=== PATIENT | female | born 1970 | race African-American/Black ===

== ENCOUNTER 2018-12-22 18:11 | Emergency (ER) | payer SELFPAY ==
[~2018-12-22] VITALS: Ht 167.6 cm; Wt 95.0 kg
[2018-12-22] MEDS ORDERED: TETANUS, DIPHTHERIA, PERTUSSIS VAC/PF 0.5ML (>7YR OLD) IM ONE (20:30)
[2018-12-22] MEDS ORDERED: LIDOCAINE HCL/PF 1% 10 MG/ML 5ML VIAL IJ ONE (20:30)
[2018-12-22] MEDS ORDERED: IBUPROFEN 600MG TABLET PO ONE (20:30)
[2018-12-22] MEDS ORDERED: BACITRACIN ZINC OINT UDPKT TOP ONE (20:30)
[2018-12-22] MEDS ORDERED: BACITRACIN 15GM TUBE TOP NR (21:00)
[2018-12-22 22:25] VITALS: BP 132/81
== END 2018-12-22 22:33 | disposition home or self-care (01) ==
LOC: ER 19:41
DX: S61.012A Laceration without foreign body of left thumb without damage to nail, initial encounter (principal); Z98.51 Tubal ligation status; W25.XXXA Contact with sharp glass, initial encounter; Y93.89 Activity, other specified; Y92.89 Other specified places as the place of occurrence of the external cause
CPT/HCPCS: 73130; 90471; 90715; 99283; J3490